=== PATIENT | female | born 1985 | race Caucasian/White ===

== ENCOUNTER 2017-06-21 13:00 | Emergency (ER) | payer SELFPAY ==
[2017-06-21 14:34] LABS: Absolute Lymphocytes (CBC) 2.3 K/uL (0.7-4.9); Absolute Monocytes 0.4 K/uL (0.1-1.3); Absolute Neutrophil 4.6 K/uL (1.8-8.0); Basophils % 0.4 % (0-1.3); Eosinophils % 2.5 % (0-4.4); Hematocrit 43.1 % (36.0-45.0); Lymphocytes % 30.5 % (15.3-44.8); MCH 30.1 pg (27.0-35.0); MCV 90.7 fL (80-100); MPV 8.7 fL (7.6-11.3); RBC Red Blood Cell Count 4.76 M/uL (3.86-4.86)
[2017-06-21] MEDS ORDERED: NA CHLORIDE 0.9% 1,000 ML ONE (14:42)
[2017-06-21] MEDS ORDERED: KETOROLAC 30 MG/ML INJ ONE (14:42)
[2017-06-21] MEDS ORDERED: ONDANSETRON 4 MG/2 ML VIAL ONE (14:42)
[2017-06-21 14:52] LABS: Bicarbonate 25 mEq/L (21-31); Glucose Level 120 mg/dL (65-120); Potassium 3.4 mEq/L (3.6-5.0); Sodium Level 141 mEq/L (135-145)
[2017-06-21 14:56] LABS: ALT/SGPT 14 IU/L (10-60); AST/SGOT 17 IU/L (10-42); Alkaline Phosphatase 36 IU/L (42-121); BUN Blood Urea Nitrogen 14 mg/dL (6-20); Bilirubin Total 0.3 mg/dL (0.3-1.2); Protein, Total 7.4 g/dL (6.0-8.3)
--- NOTE | 2017-06-21 16:37 | RAD REPORT ---
EXAM DESCRIPTION: CT - Stone Protocol - 06/21/2017 4:24 pm CLINICAL HISTORY: Back pain, abdominal pain, right-sided pain, dysuria, history of left salpingectom y COMPARISON: CT study January 2017 TECHNIQUE: Axial 5 mm thick images were obtained without oral or IV contrast. The [id number] span s the entirety of the system including uppermost abdomen and lung bases. All CT scans are performed using dose optimization technique as appropriate and may include automated exposure control or mA/KV adjustment according to patient size. FINDINGS: No hydronephrosis is present and no obstructing ureteral calculi. Patient has developed si gnificant medullary nephrocalcinosis new since January 2000 17. No suspicious renal masses. Isodense masses and pyelonephritis are not excluded on a stone protocol CT scan. Urinary bladder is nearly fu lly contracted. This limits assessment. No bladder calculi seen. No uterine or ovarian process seen. Imaged portions of the liver, spleen and pancreas show no suspicious findings on non-contrast imaging . No gallbladder or biliary tree abnormality identified. No significant adrenal finding. No suspicious bowel findings. Appendix is identified and normal. No mass or bulky lymphadenopathy. A small 18 millimeter umbilical hernia is present. Neck is 6 mm. No congestion, edema or bowel involvement. A few small mesenteric lymph nodes are present. No free air, free fluid or inflammatory stranding. No significant bony abnormality. IMPRESSION: No hydronephrosis, obstructing calculus or acute finding. Patient has developed significant bilateral medullary nephrocalcinosis since the January 2017 study. No appendicitis or acute GI process. A few small mesenteric lymph nodes are present. Isodense masses and pyelonephritis are not excluded on stone protocol technique.
--- NOTE | 2017-06-21 16:45 | EDPHYS ---
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 - Social history:: Smoking status: Patient/guardian denies using tobacco. Vital Signs: 13:37 BP 109 / 69; Pulse 91; Resp 18; Temp 98.4; Pulse Ox 98% on R/A; Weight 55.34 kg; Height ph 5 ft. 2 in. (157.48 cm); Pain 9/10; 14:20 BP 176 / 134; Pulse 95; Resp 17; Pulse Ox 99% on R/A; rb1 14:25 BP 101 / 62; Pulse 88; Resp 19; Pulse Ox 99% on R/A; Pain 7/10; rb1 15:17 BP 98 / 55; Pulse 75; Resp 19; Pulse Ox 99% ; rb1 16:20 BP 100 / 61; Pulse 76; Resp 17; Pulse Ox 100% on R/A; rb1 17:00 BP 102 / 63; Pulse 78; Resp 17; Pulse Ox 100% on R/A; rb1 13:37 Body Mass Index 22.31 (55.34 kg, 157.48 cm) ph MDM: 14:23 Patient medically screened. ps1 06/21 14:22 Order name: CBC with Diff; Complete Time: 14:39 ps1 06/21 14:22 Order name: CMP; Complete Time: 14:58 ps1 06/21 14:22 Order name: CT Stone Protocol; Complete Time: 16:41 ps1 06/21 16:16 Order name: Urine Dipstick-Ancillary; Complete Time: 17:01 EDMS 06/21 16:16 Order name: Urine --Ancillary; Complete Time: 17:01 EDMS Administered Medications: 14:40 Drug: NS 0.9% 1000 ml Route: IV; Rate: 1 bolus; Site: right antecubital; rb1 15:47 Follow up: IV Status: Completed infusion rb1 14:40 Drug: Zofran 4 mg Route: IVP; Site: right antecubital; rb1 15:00 Follow up: Response: No adverse reaction; Nausea is decreased rb1 14:40 Drug: TORadol 30 mg Route: IVP; Site: right antecubital; rb1 15:00 Follow up: Response: No adverse reaction; Pain is decreased rb1 Disposition: 18 16:44 Discharged to Home. Impression: Nausea and vomiting, Diarrhea, unspecified. - Condition is Stable. - Discharge Instructions: Abdominal Pain, Adult, Diarrhea, Kidney Stones. - Prescriptions for ketorolac 10 mg Oral tablet - take 1 tablet by ORAL route every 4-6 hours not to exceed 40 mg in 24hrs; 15 tablet. Zofran 4 mg Oral Tablet - take 1 tablet by ORAL route every 12 hours As needed; 20 tablet. - Medication Reconciliation Form, Thank You Letter, Antibiotic Education, Prescription Opioid Use form. - Follow up: Marbin Fortune MD; Reason: Recheck today's complaints, Continuance of care, Re-evaluation by your physician. Follow up: Emergency Department; When: As needed; Reason: Fever > 102 F, Worsening of condition. - Problem is new. - Symptoms have improved. Addendum: 07/02/2017 05:51 Co-signature as Attending Physician, Zachary Brandt MD available for consultation at p s1 all times. . 05:53 Addendum: 31 y/o F presenting with r flank pain and dysuria. Pain rated as moderate. No p s1 fever. Hx of ovarian cyst. ROS. No HSU, CP, JAMES, NV, Chills. PHY. NCAT, RRR, no MRG, CTAB. R flank palpable pain. No ZAID. Labs and CT reveiewed. No infected stone. Home with toradol and zofran. Follow up with Dr. Fortune. . Signatures: Dispatcher [employer] [facility] Chelita Malagon RN RN Rose Mccloud, RN Zachary Morales MD MD ps1
--- NOTE | 2017-06-21 16:45 | ER ---
Nurse's Notes [facility] Name: Kristin Atkinson Age: 31 yrs Sex: Female : 1985 Arrival Date: 06/21/2017 Time: 13:00 Bed 13 Private MD: Diagnosis: Nausea and vomiting;Diarrhea, unspecified Presentation: 06/21 13:31 Presenting complaint: Patient states: " I started having pain in my back on the right ph side since yesterday and it porras when I pee. I started having diarrhea and vomiting today and now the pain has moved to my stomach." Pt reports pain in RLQ, denies fever, reports hx of ovarian cyst rupture and states that symptoms feel similar. Transition of care: patient was not received from another setting of care. Onset of symptoms was June 21, 2017. Initial Sepsis Screen: Does the patient meet any 2 criteria? No. Patient's initial sepsis screen is negative. Does the patient have a suspected source of infection? No. Patient's initial sepsis screen is negative. Care prior to arrival: None. 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 - Social history:: Smoking status: Patient/guardian denies using tobacco. Screenin:53 Abuse screen: Denies threats or abuse. Nutritional screening: No deficits noted. rb1 Tuberculosis screening: No symptoms or risk factors identified. Fall Risk None identified. Assessment: 13:53 General: Appears uncomfortable, Behavior is calm, cooperative, Denies fever. Pain: rb1 Complains of pain in right lower quadrant Pain currently is 8 out of 10 on a pain scale. Pain began 1-2 days ago. Neuro: Level of Consciousness is awake, alert, obeys commands, Oriented to person, place, time, situation. Cardiovascular: Capillary refill < 3 seconds is brisk in bilateral fingers. Respiratory: Airway is patent Respiratory effort is even, unlabored, Respiratory pattern is regular, symmetrical. GI: Bowel sounds present X 4 quads. Abd is soft Abdomen is tender to palpation in right lower quadrant Reports nausea, vomiting. : Reports burning with urination. Derm: Skin is pink, warm \\T\\ dry. 14:44 Reassessment: Patient appears in no apparent distress at this time. No changes from rb1 previously documented assessment. 15:33 Reassessment: Patient appears in no apparent distress at this time. Patient and/or rb1 family updated on plan of care and expected duration. Pain level reassessed. Patient is alert, oriented x 3, equal unlabored respirations, skin warm/dry/pink. Pt. requested some medicine for pain; provider notified. No order received at this time. 16:30 Reassessment: Patient appears in no apparent distress at this time. No changes from rb1 previously documented assessment. Vital Signs: 13:37 BP 109 / 69; Pulse 91; Resp 18; Temp 98.4; Pulse Ox 98% on R/A; Weight 55.34 kg; Height ph 5 ft. 2 in. (157.48 cm); Pain 9/10; 14:20 BP 176 / 134; Pulse 95; Resp 17; Pulse Ox 99% on R/A; rb1 14:25 BP 101 / 62; Pulse 88; Resp 19; Pulse Ox 99% on R/A; Pain 7/10; rb1 15:17 BP 98 / 55; Pulse 75; Resp 19; Pulse Ox 99% ; rb1 16:20 BP 100 / 61; Pulse 76; Resp 17; Pulse Ox 100% on R/A; rb1 17:00 BP 102 / 63; Pulse 78; Resp 17; Pulse Ox 100% on R/A; rb1 13:37 Body Mass Index 22.31 (55.34 kg, 157.48 cm) ph ED Course: 13:00 Patient arrived in ED. as 13:23 Patient's name was called from ER lobby. No response. ph 13:34 Triage completed. ph 13:53 Patient has correct armband on for positive identification. Bed in low position. Call rb1 light in reach. Side rails up X2. Pulse ox on. NIBP on. 13:53 Arm band placed on right wrist. rb1 14:01 Zachary Brandt MD is Attending Physician. ps1 14:24 Rose Mccloud, RN is Primary Nurse. rb1 14:26 Radiology exam delayed due to test not completed at this time. sj 16:10 Radiology exam delayed due to test not completed at this time. vm2 16:[address] via wheelchair. vm2 16:23 CT completed. Patient tolerated procedure well. Patient moved back from CT. vm2 16:23 CT Stone Protocol In Process Unspecified. EDMS 16:42 Marbin Fortune MD is Referral Physician. ps1 17:00 No provider procedures requiring assistance completed. IV discontinued, intact, rb1 bleeding controlled, No redness/swelling at site. Pressure dressing applied. Administered Medications: 14:40 Drug: NS 0.9% 1000 ml Route: IV; Rate: 1 bolus; Site: right antecubital; rb1 15:47 Follow up: IV Status: Completed infusion rb1 14:40 Drug: Zofran 4 mg Route: IVP; Site: right antecubital; rb1 15:00 Follow up: Response: No adverse reaction; Nausea is decreased rb1 14:40 Drug: TORadol 30 mg Route: IVP; Site: right antecubital; rb1 15:00 Follow up: Response: No adverse reaction; Pain is decreased rb1 Outcome: 16:44 Discharge ordered by MD. ps1 17:00 Discharged to home ambulatory, with family. rb1 17:00 Condition: stable 17:00 Discharge instructions given to patient, Instructed on discharge instructions, follow up and referral plans. medication usage, Demonstrated understanding of instructions, follow-up care, medications, Prescriptions given X 2. 17:00 Patient left the ED. rb1 Signatures: Dispatcher [employer] Giana Seth Roxie Morales Patricia, RN RN Rose Mccloud RN RN [facility] Katie Harley [facility] Zachary Brandt MD MD ps1 Corrections: (The following items were deleted from the chart) 17:05 17:05 Patient left the ED. rb1 rb1
[2017-06-21 16:54] LABS: Urine Blood NEGATIVE (NEG); Urine Glucose NEGATIVE (NEG); Urine Protein NEGATIVE (NEG)
[2017-06-21 17:08] VITALS: TEMP 98.4
[2017-06-21 17:13] VITALS: O2SAT 100
[2017-06-21 17:14] VITALS: BP 102/63
== END 2017-06-21 17:05 | disposition home or self-care (01) ==
LOC: ER 13:00
DX: R11.2 Nausea with vomiting, unspecified (principal); R19.7 Diarrhea, unspecified; J45.909 Unspecified asthma, uncomplicated; Z91.040 Latex allergy status; Z91.041 Radiographic dye allergy status; Z91.048 Other nonmedicinal substance allergy status
CPT/HCPCS: 36415; 74176; 76377; 80053; 81003; 81025; 85025; 96361; 96374; 96375; 99284; J2405; J7030

== ENCOUNTER 2017-07-25 20:21 | Emergency (ER) | payer SELFPAY ==
[2017-07-25] MEDS ORDERED: METHYLPREDNISOLONE 125 MG INJ ONE (20:52)
[2017-07-25] MEDS ORDERED: FAMOTIDINE 20 MG TAB ONE (20:52)
[2017-07-25] MEDS ORDERED: DIPHENHYDRAMINE 25 MG TAB/CAP ONE (20:52)
--- NOTE | 2017-07-25 21:53 | ER ---
Nurse's Notes [facility] Name: Kristin Atkinson Age: 31 yrs Sex: Female : 1985 Arrival Date: 07/25/2017 Time: 20:24 Bed 24 Private MD: Diagnosis: Urticaria Presentation: 07/25 20:40 Presenting complaint: Patient states: she was started on Amoxicillin several weeks ago bb started having a rash under her left breast and thought it was a ring worm so started putting OTC fungal cream on it but rash has progressed was seen at [facility] and put on hydroxyzine and told to take Benadryl but rash is spreading all over her body and is itchy. Transition of care: patient was not received from another setting of care. Onset: The symptoms/episode began/occurred 2 week(s) ago. Anaphylaxis evaluation, no signs or symptoms of anaphylaxis were noted. Onset of symptoms is unknown. Risk Assessment: Do you want to hurt yourself or someone else? Patient reports no desire to harm self or others. Initial Sepsis Screen: Does the patient meet any 2 criteria? No. Patient's initial sepsis screen is negative. Does the patient have a suspected source of infection? No. Patient's initial sepsis screen is negative. Care prior to arrival: pt has been taking Benadry every 4 hours last dose was at approx 1600. 20:40 Method Of Arrival: Ambulatory bb 20:40 Acuity: BOOM 3 bb Triage Assessment: 21:08 General: Appears in no apparent distress. slender, well groomed, well developed, well rk2 nourished, Behavior is. 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 - Social history:: Smoking status: Patient/guardian denies using tobacco, Patient uses alcohol, but reports only rare drinking. Patient/guardian denies using street drugs. Screenin:08 Abuse screen: Denies threats or abuse. Nutritional screening: No deficits noted. rk2 Tuberculosis screening: No symptoms or risk factors identified. Fall Risk None identified. Assessment: 21:08 Pain: Denies pain. Neuro: Level of Consciousness is alert, obeys commands, Oriented to rk2 person, place, time, situation. Respiratory: Airway is patent Respiratory effort is even, unlabored, Breath sounds are clear bilaterally. Derm: Skin is pink, warm \T\ dry. Rash noted that is itchy, papular, red. Vital Signs: 20:43 BP 116 / 98; Pulse 99; Resp 18 S; Temp 98.5(O); Pulse Ox 98% on R/A; Weight 55.34 kg bb (R); Height 5 ft. 3 in. (160.02 cm) (R); Pain 0/10; 22:12 BP 103 / 56; Pulse 83; Resp 17; Pulse Ox 99% on R/A; rk2 20:43 Body Mass Index 21.61 (55.34 kg, 160.02 cm) ED Course: 20:24 Patient arrived in ED. am2 20:30 Chandra Cooley, ALEX is PHCP. pm1 20:30 Raghu Almaraz MD is Attending Physician. pm1 20:37 Aidee Mejia, RN is Primary Nurse. rk2 20:42 Triage completed. 20:43 Arm band placed on Patient placed in an exam room, on a stretcher, on pulse oximetry. Family accompanied patient. 21:08 Patient has correct armband on for positive identification. Bed in low position. Call rk2 light in reach. 22:13 No provider procedures requiring assistance completed. Patient did not have IV access rk2 during this emergency room visit. Administered Medications: 21:03 Drug: SOLU-Medrol 125 mg Route: IM; Site: left vastus lateralis; rk2 22:15 Follow up: Response: No adverse reaction rk2 21:03 Drug: Benadryl 25 mg Route: PO; rk2 22:14 Follow up: Response: No adverse reaction rk2 21:03 Drug: Pepcid 20 mg Route: PO; rk2 22:14 Follow up: Response: No adverse reaction rk2 Outcome: 21:52 Discharge ordered by . pm1 22:13 Discharged to home ambulatory. rk2 22:13 Condition: good 22:13 Discharge instructions given to patient, Prescriptions given X 3. 22:22 Patient left the ED. rk2 Signatures: Kayla Hawk, RN Chandra Barrow NP [employer] pm1 Karlene Lowe am2 Aidee Mejia RN RN rk2
--- NOTE | 2017-07-25 21:53 | EDPHYS ---
Physician Documentation [facility] Name: Kristin Atkinson Age: 31 yrs Sex: Female : 1985 Arrival Date: 07/25/2017 Time: 20:24 Bed 24 Private MD: ED Physician Raghu Almaraz HPI: 07/25 22:00 This 31 yrs old Female presents to ER via Ambulatory with complaints of pm1 Allergic Reaction. 22:00 The patient presents with rash, that is diffuse. Onset: The symptoms/episode pm1 began/occurred 2 day(s) ago. Associated signs and symptoms: Pertinent negatives: chest pain, dysphagia, fever, shortness of breath, swelling. Possible causes: tramadol or amoxicillin. At home the patient or guardian has treated the symptoms with nothing. Severity of symptoms: in the emergency department the symptoms are worse. The patient has not experienced similar symptoms in the past. another ER for kidney stones about 10 days ago and discharged to home with amoxicillin and tramadol. Completed amoxicillin but still taking some tramadol with possible rash to either one. 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 - Social history:: Smoking status: Patient/guardian denies using tobacco, Patient uses alcohol, but reports only rare drinking. Patient/guardian denies using street drugs. ROS: 22:00 Constitutional: Negative for fever, chills, and weight loss, Eyes: Negative for injury, pm1 pain, redness, and discharge, ENT: Negative for injury, pain, and discharge, Neck: Negative for injury, pain, and swelling, Cardiovascular: Negative for chest pain, palpitations, and edema, Respiratory: Negative for shortness of breath, cough, wheezing, and pleuritic chest pain, Abdomen/GI: Negative for abdominal pain, nausea, vomiting, diarrhea, and constipation, Back: Negative for injury and pain, : Negative for injury, bleeding, discharge, and swelling, MS/Extremity: Negative for injury and deformity. 22:00 Skin: Positive for rash, diffusely. Exam: 22:00 Constitutional: This is a well developed, well nourished patient who is awake, alert, pm1 and in no acute distress. Head/Face: Normocephalic, atraumatic. Eyes: Pupils equal round and reactive to light, extra-ocular motions intact. Lids and lashes normal. Conjunctiva and sclera are non-icteric and not injected. Cornea within normal limits. Periorbital areas with no swelling, redness, or edema. ENT: Nares patent. No nasal discharge, no septal abnormalities noted. Tympanic membranes are normal and external auditory canals are clear. Oropharynx with no redness, swelling, or masses, exudates, or evidence of obstruction, uvula midline. Mucous membranes moist. Neck: Trachea midline, no thyromegaly or masses palpated, and no cervical lymphadenopathy. Supple, full range of motion without nuchal rigidity, or vertebral point tenderness. No Meningismus. Chest/axilla: Normal chest wall appearance and motion. Nontender with no deformity. No lesions are appreciated. Cardiovascular: Regular rate and rhythm with a normal S1 and S2. No gallops, murmurs, or rubs. Normal PMI, no JVD. No pulse deficits. Respiratory: Lungs have equal breath sounds bilaterally, clear to auscultation and percussion. No rales, rhonchi or wheezes noted. No increased work of breathing, no retractions or nasal flaring. Abdomen/GI: Soft, non-tender, with normal bowel sounds. No distension or tympany. No guarding or rebound. No evidence of tenderness throughout. Back: No spinal tenderness. No costovertebral tenderness. Full range of motion. 22:00 Skin: Appearance: normal except for affected area, consistent with urticaria. Vital Signs: 20:43 BP 116 / 98; Pulse 99; Resp 18 S; Temp 98.5(O); Pulse Ox 98% on R/A; Weight 55.34 kg bb (R); Height 5 ft. 3 in. (160.02 cm) (R); Pain 0/10; 22:12 BP 103 / 56; Pulse 83; Resp 17; Pulse Ox 99% on R/A; rk2 20:43 Body Mass Index 21.61 (55.34 kg, 160.02 cm) jason MDM: 20:42 Patient medically screened. pm1 21:51 Data reviewed: vital signs. Data interpreted: Pulse oximetry: on room air is 98 %. pm1 Interpretation: normal. Counseling: I had a detailed discussion with the patient and/or guardian regarding: the historical points, exam findings, and any diagnostic results supporting the discharge/admit diagnosis, the need for outpatient follow up, to return to the emergency department if symptoms worsen or persist or if there are any questions or concerns that arise at home. Administered Medications: 21:03 Drug: SOLU-Medrol 125 mg Route: IM; Site: left vastus lateralis; rk2 22:15 Follow up: Response: No adverse reaction rk2 21:03 Drug: Benadryl 25 mg Route: PO; rk2 22:14 Follow up: Response: No adverse reaction rk2 21:03 Drug: Pepcid 20 mg Route: PO; rk2 22:14 Follow up: Response: No adverse reaction rk2 Disposition: 07/26 01:11 Co-signature as Attending Physician, Raghu Almaraz MD I agree with the assessment and tw4 plan of care. Disposition: 07/25/17 21:52 Discharged to Home. Impression: Urticaria. - Condition is Stable. - Discharge Instructions: Hives. - Prescriptions for Benadryl 25 mg Oral Capsule - take 1 capsule by ORAL route every 6 hours As needed; 30 tablet. Pepcid 20 mg Oral Tablet - take 1 tablet by ORAL route every 12 hours for 5 days; 10 tablet. Prednisone 20 mg Oral Tablet - take 3 tablet by ORAL route once daily for 5 days; 15 tablet. - Medication Reconciliation Form, Thank You Letter, Antibiotic Education, Prescription Opioid Use form. - Follow up: Emergency Department; When: As needed; Reason: Worsening of condition. Follow up: Private Physician; When: 2 - 3 days; Reason: Recheck today's complaints, Continuance of care, Re-evaluation by your physician. - Problem is new. - Symptoms have improved. Signatures: Kayla Hawk RN RN bb Chandra Cooley, BASEBALL PLAYER BASEBALL PLAYER pm1 Raghu Almaraz MD MD tw4 Aidee Mejia RN RN rk2 Corrections: (The following items were deleted from the chart) 05/21 22:22 21:52 07/25/2017 21:52 Discharged to Home. Impression: Urticaria. Condition is Stable. rk2 Forms are Medication Reconciliation Form, Thank You Letter, Antibiotic Education, Prescription Opioid Use. Follow up: Emergency Department; When: As needed; Reason: Worsening of condition. Follow up: Private Physician; When: 2 - 3 days; Reason: Recheck today's complaints, Continuance of care, Re-evaluation by your physician. Problem is new. Symptoms have improved. pm1
[2017-07-25 22:29] VITALS: TEMP 98.5
[2017-07-25 22:30] VITALS: BP 103/56; O2SAT 99
== END 2017-07-25 22:22 | disposition home or self-care (01) ==
LOC: ER 20:21
DX: L50.9 Urticaria, unspecified (principal); J45.909 Unspecified asthma, uncomplicated; Z91.041 Radiographic dye allergy status; Z91.040 Latex allergy status; Z91.048 Other nonmedicinal substance allergy status
CPT/HCPCS: 96372; 99283; J2930

== ENCOUNTER 2017-10-27 08:26 | Emergency (ER) | payer SELFPAY ==
--- NOTE | 2017-10-27 09:23 | ER ---
Nurse's Notes [facility] Name: Kristin Atkinson Age: 31 yrs Sex: Female : 1985 Arrival Date: 10/27/2017 Time: 08:29 Bed 19 Private MD: None, None Diagnosis: viral illness;Acute maxillary sinusitis Presentation: 10/27 08:52 Presenting complaint: Patient states: has sore throat since yesterday morning, fever iw since last night up to 102.6, also has sinus congestion, chest tightness, and this morning she had pain with urination and only urinating a small amount. Transition of care: patient was not received from another setting of care. Onset of symptoms was October 27, 2017. Risk Assessment: Do you want to hurt yourself or someone else? Patient reports no desire to harm self or others. Initial Sepsis Screen: Does the patient meet any 2 criteria? No. Patient's initial sepsis screen is negative. Does the patient have a suspected source of infection? No. Patient's initial sepsis screen is negative. Care prior to arrival: None. 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 - Social history:: Smoking status: Patient uses tobacco products, smokes one-half pack cigarettes per day. - Ebola Screening: : Patient denies travel to an Ebola-affected area in the 21 days before illness onset. - Family history:: not pertinent. - Hospitalizations: : No recent hospitalization is reported. Screenin:49 Abuse screen: Denies threats or abuse. Nutritional screening: No deficits noted. tw2 Tuberculosis screening: No symptoms or risk factors identified. Fall Risk None identified. Assessment: 09:11 General: Appears in no apparent distress. uncomfortable, Behavior is calm, cooperative. em General: Reports fever for 12-24 hours. Pain: Complains of pain in suprapubic area and throat. Neuro: Level of Consciousness is awake, alert, obeys commands, Oriented to person, place, time, situation, Reports headache. Cardiovascular: Capillary refill < 3 seconds. Respiratory: Airway is patent Respiratory effort is even, unlabored, Breath sounds are clear bilaterally. Breath sounds are coarse. GI: Abdomen is flat, Patient currently denies abdominal pain, nausea, vomiting. : Urine is clear. EENT: Throat is clear is pink. Derm: Skin is intact, Skin is pink, warm \T\ dry. Musculoskeletal: Capillary refill < 3 seconds, Range of motion: intact in all extremities. Vital Signs: 08:52 BP 111 / 79; Pulse 92; Resp 16 S; Temp 98.0(O); Pulse Ox 98% on R/A; Weight 55.34 kg; iw Height 5 ft. 2 in. (157.48 cm); Pain 9/10; 08:52 Body Mass Index 22.31 (55.34 kg, 157.48 cm) iw ED Course: 08:29 Patient arrived in ED. mr 08:29 None, None is Private Physician. mr 08:50 Arm band placed on. tw2 08:50 Bed in low position. Call light in reach. Pulse ox on. NIBP on. tw2 08:53 [facility]ita Mcgarry [facility]. kav 08:53 Ricky Noriega MD is Attending Physician. kav 08:54 Triage completed. iw 08:55 Jerome Elam LVN is Primary Nurse. em 09:10 Urine collected: clean catch specimen, clear. em 09:32 No provider procedures requiring assistance completed. Patient did not have IV access em during this emergency room visit. Administered Medications: No medications were administered Outcome: 09:23 Discharge ordered by . kav 09:32 Discharged to home ambulatory. em 09:32 Condition: good 09:32 Discharge instructions given to patient, Instructed on discharge instructions, follow up and referral plans. medication usage, Demonstrated understanding of instructions, follow-up care, medications, Prescriptions given X 2. 09:33 Patient left the ED. em Signatures: Morenita Mcgarry FNP STRATEGIC ACCOUNTS MANAGERSonia Christopher mr Jerome Elam LVN LVN em Shawnee Greer RN RN iw Cierra Velasco, RN RN tw2
--- NOTE | 2017-10-27 09:23 | EDPHYS ---
Physician Documentation [facility] Name: Kristin Atkinson Age: 31 yrs Sex: Female : 1985 Arrival Date: 10/27/2017 Time: 08:29 Bed 19 Private MD: None, None ED Physician Ricky Noriega HPI: 10/27 08:53 This 31 yrs old Female presents to ER via Unassigned with complaints of kav Fever, Sore Throat, Urinary Problem. 09:04 The patient reports fever, that was measured at 102.4 degrees Fahrenheit, with an kav emergency department temperature of 98.0 degrees Fahrenheit. Onset: The symptoms/episode began/occurred acutely, last year. Modifying factors: "...recently started smoking". Associated signs and symptoms: Pertinent positives: sinus congestion, sore throat, Pertinent negatives: chills, cough, diarrhea, headache. Severity of symptoms: At their worst the symptoms were moderate just prior to arrival. The patient has experienced similar episodes in the past, several times. The patient has not recently seen a physician. Also, c/o burning with urination. 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 - Social history:: Smoking status: Patient uses tobacco products, smokes one-half pack cigarettes per day. - Ebola Screening: : Patient denies travel to an Ebola-affected area in the 21 days before illness onset. - Family history:: not pertinent. - Hospitalizations: : No recent hospitalization is reported. ROS: 09:05 Constitutional: Negative for fever, chills, and weight loss, Eyes: Negative for injury, kav pain, redness, and discharge, Neck: Negative for injury, pain, and swelling, Cardiovascular: Negative for chest pain, palpitations, and edema, Respiratory: Negative for shortness of breath, cough, wheezing, and pleuritic chest pain, Abdomen/GI: Negative for abdominal pain, nausea, vomiting, diarrhea, and constipation, Back: Negative for injury and pain, : Negative for injury, bleeding, discharge, and swelling, MS/Extremity: Negative for injury and deformity, Skin: Negative for injury, rash, and discoloration, Neuro: Negative for headache, weakness, numbness, tingling, and seizure, Psych: Negative for depression, anxiety, suicide ideation, homicidal ideation, and hallucinations, Allergy/Immunology: Negative for hives, rash, and allergies, Endocrine: Negative for neck swelling, polydipsia, polyuria, polyphagia, and marked weight changes, Hematologic/Lymphatic: Negative for swollen nodes, abnormal bleeding, and unusual bruising. 09:05 ENT: Positive for difficulty swallowing, sinus congestion, sinus pain, sore throat, Negative for ear pain. Exam: 09:05 Constitutional: This is a well developed, well nourished patient who is awake, alert, kav and in no acute distress. Head/Face: Normocephalic, atraumatic. Eyes: Pupils equal round and reactive to light, extra-ocular motions intact. Lids and lashes normal. Conjunctiva and sclera are non-icteric and not injected. Cornea within normal limits. Periorbital areas with no swelling, redness, or edema. Neck: Trachea midline, no thyromegaly or masses palpated, and no cervical lymphadenopathy. Supple, full range of motion without nuchal rigidity, or vertebral point tenderness. No Meningismus. Chest/axilla: Normal chest wall appearance and motion. Nontender with no deformity. No lesions are appreciated. Cardiovascular: Regular rate and rhythm with a normal S1 and S2. No gallops, murmurs, or rubs. Normal PMI, no JVD. No pulse deficits. Respiratory: Lungs have equal breath sounds bilaterally, clear to auscultation and percussion. No rales, rhonchi or wheezes noted. No increased work of breathing, no retractions or nasal flaring. Abdomen/GI: Soft, non-tender, with normal bowel sounds. No distension or tympany. No guarding or rebound. No evidence of tenderness throughout. Back: No spinal tenderness. No costovertebral tenderness. Full range of motion. Skin: Warm, dry with normal turgor. Normal color with no rashes, no lesions, and no evidence of cellulitis. MS/ Extremity: Pulses equal, no cyanosis. Neurovascular intact. Full, normal range of motion. Neuro: Awake and alert, GCS 15, oriented to person, place, time, and situation. Cranial nerves II-XII grossly intact. Motor strength 5/5 in all extremities. Sensory grossly intact. Cerebellar exam normal. Normal gait. Psych: Awake, alert, with orientation to person, place and time. Behavior, mood, and affect are within normal limits. 09:05 ENT: External ear(s): are unremarkable, no acute changes, Ear canal(s): are normal, no acute changes, TM's: are normal, no acute changes, Nose: Turbinates: are swollen bilaterally, Mouth: is normal, no acute changes, Posterior pharynx: erythema, that is mild. Vital Signs: 08:52 BP 111 / 79; Pulse 92; Resp 16 S; Temp 98.0(O); Pulse Ox 98% on R/A; Weight 55.34 kg; iw Height 5 ft. 2 in. (157.48 cm); Pain 9/10; 08:52 Body Mass Index 22.31 (55.34 kg, 157.48 cm) iw MDM: 08:54 Patient medically screened. hi 09:05 Data reviewed: vital signs, nurses notes. nilsa 10/27 09:16 Order name: Urine Dipstick--Ancillary (enter results) mb4 10/27 09:16 Order name: Urine --Ancillary (enter results) mb4 Administered Medications: No medications were administered Disposition: 10/27/17 09:23 Discharged to Home. Impression: viral illness, Acute maxillary sinusitis. - Condition is Stable. - Discharge Instructions: Sinusitis, Adult, Viral Respiratory Infection, [id number]. - Prescriptions for Augmentin 875- 125 mg Oral Tablet - take 1 tablet by ORAL route every 12 hours for 10 days; 20 tablet. Medrol (Jesus Manuel) 4 mg Oral Tablets, Dose Pack - take 1 tablet by ORAL route as directed - follow package instructions; 1 packet. - Medication Reconciliation Form, Thank You Letter, Antibiotic Education, Prescription Opioid Use form. - Follow up: Private Physician; When: 1 - 2 days; Reason: Recheck today's complaints, Continuance of care, Re-evaluation by your physician. - Problem is new. - Symptoms are unchanged. Addendum: 10/29/2017 08:02 Co-signature as Attending Physician, Ricky Noriega MD I agree with the assessment and w a plan of care. Signatures: Dispatcher [employer] Morenita Perez, TRANSFORMATION ANALYST TRANSFORMATION ANALYST Jerome Cooper, TAXATION ACCOUNTANT TAXATION ACCOUNTANT em Shawnee Greer, RN RN iw Cierra Velasco RN RN tw2 Ricky Noriega MD MD hi Corrections: (The following items were deleted from the chart) 10/27 09:33 09:23 10/27/2017 09:23 Discharged to Home. Impression: viral illness; Acute maxillary em sinusitis. Condition is Stable. Forms are Medication Reconciliation Form, Thank You Letter, Antibiotic Education, Prescription Opioid Use. Follow up: Private Physician; When: 1 - 2 days; Reason: Recheck today's complaints, Continuance of care, Re-evaluation by your physician. Problem is new. Symptoms are unchanged. kav
[2017-10-27 09:38] VITALS: BP 111/79; TEMP 98; O2SAT 98
[2017-10-27 09:49] LABS: Urine Blood TRACE (NEG); Urine Glucose NEGATIVE (NEG); Urine Protein NEGATIVE (NEG)
== END 2017-10-27 09:33 | disposition home or self-care (01) ==
LOC: ER 08:26
DX: B34.9 Viral infection, unspecified (principal); J01.00 Acute maxillary sinusitis, unspecified; F17.210 Nicotine dependence, cigarettes, uncomplicated; J45.909 Unspecified asthma, uncomplicated; Z91.040 Latex allergy status; Z91.041 Radiographic dye allergy status; Z91.048 Other nonmedicinal substance allergy status
CPT/HCPCS: 81003; 81025; 99283

== ENCOUNTER 2018-09-20 12:25 | Emergency (ER) | payer SELFPAY ==
--- NOTE | 2018-09-20 13:35 | ER ---
Nurse's Notes [facility] Name: Kristin Atkinson Age: 32 yrs Sex: Female : 1985 Arrival Date: 09/20/2018 Time: 12:25 Bed 11 Private MD: Diagnosis: Acute serous otitis media, left ear Presentation: 09/20 12:38 Presenting complaint: Patient states: 3 weeks ago my R ear drum busted, L ear is busted hj few days after and now is still hurting; i finished antibiotic drops already;. Transition of care: patient was not received from another setting of care. Onset of symptoms was September 20, 2018. Risk Assessment: Do you want to hurt yourself or someone else? Patient reports no desire to harm self or others. Initial Sepsis Screen: Does the patient meet any 2 criteria? No. Patient's initial sepsis screen is negative. Does the patient have a suspected source of infection? No. Patient's initial sepsis screen is negative. Care prior to arrival: None. 12:38 Method Of Arrival: Ambulatory 12:38 Acuity: BOOM 4 Triage Assessment: 13:51 General: Appears in no apparent distress. uncomfortable, Behavior is calm, cooperative, hj appropriate for age. Pain: Complains of pain in left ear. 13:52 EENT: Reports pain in left ear. 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 - Social history:: Smoking status: Patient uses tobacco products, Patient/guardian denies using alcohol. - Ebola Screening: : Patient negative for fever greater than or equal to 101.5 degrees Fahrenheit, and additional compatible Ebola Virus Disease symptoms Patient denies exposure to infectious person Patient denies travel to an Ebola-affected area in the 21 days before illness onset. Screenin:51 Abuse screen: Denies threats or abuse. Denies injuries from another. Nutritional hj screening: No deficits noted. Tuberculosis screening: No symptoms or risk factors identified. Fall Risk None identified. Vital Signs: 12:40 BP 119 / 77; Pulse 68; Resp 18; Temp 98.0(TE); Pulse Ox 99% on R/A; Weight 49.44 kg; hj Height 5 ft. 3 in. (160.02 cm); Pain 8/10; 12:40 Body Mass Index 19.31 (49.44 kg, 160.02 cm) hj ED Course: 12:25 Patient arrived in ED. as 12:40 Triage completed. hj 12:41 Arm band placed on left wrist. hj 13:04 Mike Toth PA is PHCP. jr8 13:04 Apollo Garcia MD is Attending Physician. jr8 13:34 Claudia Lucas MD is Referral Physician. jr8 13:51 No provider procedures requiring assistance completed. Patient did not have IV access hj during this emergency room visit. 13:52 Patient has correct armband on for positive identification. Bed in low position. Call hj light in reach. Side rails up X 1. Administered Medications: No medications were administered Outcome: 13:35 Discharge ordered by MD. jr8 13:51 Discharged to home ambulatory, with family. hj 13:51 Condition: stable 13:51 Discharge instructions given to patient, family, Instructed on discharge instructions, follow up and referral plans. medication usage, Demonstrated understanding of instructions, follow-up care, medications, Prescriptions given X 1. 13:52 Patient left the ED. hj Signatures: Roxie Morales Josh, PA PA jr8 Ki Villalobos, RN RN hj Corrections: (The following items were deleted from the chart) 12:42 12:40 49.44 kg; Height 5 ft. 3 in.; BMI: 19.3; Pain 8/10; hj hj
--- NOTE | 2018-09-20 13:36 | EDPHYS ---
Physician Documentation [facility] Name: Kristin Atkinson Age: 32 yrs Sex: Female : 1985 Arrival Date: 09/20/2018 Time: 12:25 Bed 11 Private MD: ED Physician Apollo Garcia HPI: 09/20 13:12 This 32 yrs old Female presents to ER via Ambulatory with complaints of Ear jr8 Pain, Drainage From Ear. 13:12 The patient presents with pain, that is acute. The complaints affect the left ear. jr8 Onset: The symptoms/episode began/occurred 2 day(s) ago. Modifying factors: The symptoms are alleviated by nothing, the symptoms are aggravated by nothing, touching. Associated signs and symptoms: Pertinent negatives: fever, nausea, sinus trouble, sore throat, vomiting. Severity of symptoms: At their worst the symptoms were mild in the emergency department the symptoms are unchanged. The patient has experienced a previous episode, approximately 3 weeks ago, was told at that time she had bilateral TM ruptures. 3 weeks ago seen at [facility] for bilateral TM rupture, now with left ear pain and drainage that started 2 days ago. . 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 - Social history:: Smoking status: Patient uses tobacco products, Patient/guardian denies using alcohol. - Ebola Screening: : Patient negative for fever greater than or equal to 101.5 degrees Fahrenheit, and additional compatible Ebola Virus Disease symptoms Patient denies exposure to infectious person Patient denies travel to an Ebola-affected area in the 21 days before illness onset. ROS: 13:12 Constitutional: Negative for fever, chills, and weight loss, Eyes: Negative for injury, jr8 pain, redness, and discharge, Neck: Negative for injury, pain, and swelling, Cardiovascular: Negative for chest pain, palpitations, and edema, Respiratory: Negative for shortness of breath, cough, wheezing, and pleuritic chest pain, Abdomen/GI: Negative for abdominal pain, nausea, vomiting, diarrhea, and constipation, Back: Negative for injury and pain, MS/Extremity: Negative for injury and deformity, Skin: Negative for injury, rash, and discoloration, Neuro: Negative for headache, weakness, numbness, tingling, and seizure. 13:12 ENT: Positive for drainage from ear(s), ear pain, nasal discharge, Negative for hearing loss, Teeth pain dental pain. Exam: 13:12 Constitutional: This is a well developed, well nourished patient who is awake, alert, jr8 and in no acute distress. Head/Face: Normocephalic, atraumatic. Eyes: Pupils equal round and reactive to light, extra-ocular motions intact. Lids and lashes normal. Conjunctiva and sclera are non-icteric and not injected. Cornea within normal limits. Periorbital areas with no swelling, redness, or edema. Neck: Trachea midline, no thyromegaly or masses palpated, and no cervical lymphadenopathy. Supple, full range of motion without nuchal rigidity, or vertebral point tenderness. No Meningismus. Cardiovascular: Regular rate and rhythm with a normal S1 and S2. No gallops, murmurs, or rubs. Normal PMI, no JVD. No pulse deficits. Respiratory: Lungs have equal breath sounds bilaterally, clear to auscultation and percussion. No rales, rhonchi or wheezes noted. No increased work of breathing, no retractions or nasal flaring. Abdomen/GI: Soft, non-tender, with normal bowel sounds. No distension or tympany. No guarding or rebound. No evidence of tenderness throughout. Skin: Warm, dry with normal turgor. Normal color with no rashes, no lesions, and no evidence of cellulitis. MS/ Extremity: Pulses equal, no cyanosis. Neurovascular intact. Full, normal range of motion. Neuro: Awake and alert, GCS 15, oriented to person, place, time, and situation. Cranial nerves II-XII grossly intact. Motor strength 5/5 in all extremities. Sensory grossly intact. Cerebellar exam normal. Normal gait. 13:12 ENT: External ear(s): are unremarkable, Ear canal(s): are normal, TM's: erythema, that is mild, on the left, fluid levels, on the left, scarring to left, Examination of the other ear shows no obvious abnormality, Nose: is normal, Mouth: is normal, Posterior pharynx: is normal, airway is patent, no erythema, no exudate. Vital Signs: 12:40 BP 119 / 77; Pulse 68; Resp 18; Temp 98.0(TE); Pulse Ox 99% on R/A; Weight 49.44 kg; hj Height 5 ft. 3 in. (160.02 cm); Pain 8/10; 12:40 Body Mass Index 19.31 (49.44 kg, 160.02 cm) hj MDM: 13:04 Patient medically screened. jr8 13:27 Differential diagnosis: otitis media, otitis externa, ruptured TM, foreign body, acute jr8 otalgia, cerumen impaction. Data reviewed: vital signs, nurses notes, and as a result, I will discharge patient, administer antibiotics. Data interpreted: Pulse oximetry: on room air is 99 %. Interpretation: normal. Counseling: I had a detailed discussion with the patient and/or guardian regarding: the historical points, exam findings, and any diagnostic results supporting the discharge/admit diagnosis, the need for outpatient follow up, an ENT specialist, to return to the emergency department if symptoms worsen or persist or if there are any questions or concerns that arise at home. 13:31 ED course: Discussed exam findings and need to fu with ENT due to continued ear jr8 problems. Serous otitis vs very early acute otitis media. Discussed taking pseudoephedrine OTC daily x 5 days to relieve eustachian tube dysfunction and ibuprofen 800 mg BID for pain. Will prescribe amoxicillin to take if pain does not resolve or worsens.. Administered Medications: No medications were administered Disposition: 15:59 Co-signature as Attending Physician, Apollo Garcia MD. rn Disposition: 09/20/18 13:35 Discharged to Home. Impression: Acute serous otitis media, left ear. - Condition is Stable. - Discharge Instructions: Serous Otitis Media. - Prescriptions for Amoxicillin 875 mg Oral Tablet - take 1 tablet by ORAL route every 12 hours for 10 days; 20 tablet. - Medication Reconciliation Form, Thank You Letter, Antibiotic Education, Prescription Opioid Use form. - Follow up: Claudia Lucas MD; When: 2 - 3 days; Reason: Recheck today's complaints, Continuance of care. - Problem is an ongoing problem. - Symptoms have improved. Signatures: Apollo Garcia MD MD rn Roszak, Josh, PA PA jr8 Ki Villalobos RN RN hj Corrections: (The following items were deleted from the chart) 13:28 13:12 ENT: External ear(s): are unremarkable, Ear canal(s): are normal, Nose: is jr8 normal, Mouth: is normal, Posterior pharynx: is normal, airway is patent, no erythema, no exudate, jr8 13:31 13:12 ENT: External ear(s): are unremarkable, Ear canal(s): are normal, TM's: erythema, jr8 that is mild, on the left, fluid levels, on the left, Nose: is normal, Mouth: is normal, Posterior pharynx: is normal, airway is patent, no erythema, no exudate, jr8 13:33 13:27 Data reviewed: vital signs, nurses notes, jr8 jr8 13:33 13:27 Data interpreted: Pulse oximetry: on room air is 99 %. Interpretation: normal. [id number] 13:52 13:35 09/20/2018 13:35 Discharged to Home. Impression: Acute serous otitis media, left hj ear. Condition is Stable. Forms are Medication Reconciliation Form, Thank You Letter, Antibiotic Education, Prescription Opioid Use. Follow up: Claudia Lucas; When: 2 - 3 days; Reason: Recheck today's complaints, Continuance of care. Problem is an ongoing problem. Symptoms have improved. jr8
[2018-09-20 15:27] VITALS: BP 119/77; TEMP 98; O2SAT 99
== END 2018-09-20 13:52 | disposition home or self-care (01) ==
LOC: ER 12:25
DX: H65.02 Acute serous otitis media, left ear (principal); J45.909 Unspecified asthma, uncomplicated; Z91.041 Radiographic dye allergy status; Z91.040 Latex allergy status

== ENCOUNTER 2018-11-03 09:32 | Emergency (ER) | payer SELFPAY ==
[2018-11-03] MEDS ORDERED: KETOROLAC 30 MG/ML INJ ONE (10:58)
[2018-11-03] MEDS ORDERED: ONDANSETRON 4 MG (ODT) TAB ONE (10:59)
--- NOTE | 2018-11-03 11:10 | RAD REPORT ---
EXAM DESCRIPTION: RAD - Chest Single View - 11/03/2018 11:03 am CLINICAL HISTORY: CONGESTION Chest pain. COMPARISON: No comparisons FINDINGS: Portable technique limits examination quality. The lungs are grossly clear. The heart is normal in size. No displaced fractures. IMPRESSION: No acute intrathoracic process suspected.
--- NOTE | 2018-11-03 12:14 | ER ---
Nurse's Notes [facility] Name: Kristin Atkinson Age: 32 yrs Sex: Female : 1985 Arrival Date: 11/03/2018 Time: 09:36 Bed 14 Private MD: Diagnosis: Acute pharyngitis;Acute pharyngitis, unspecified;Viral infection, unspecified;Headache;Acute upper respiratory infection, unspecified Presentation: 11/03 09:42 Presenting complaint: Patient states: Sore throat with pain radiating up into the ears sg and neck, reports headache that feels like a normal headache, reports having pain when swallowing, child in home recently diagnosed with strep throat, symptoms going on now for 3 days fever 102.5 last night. Transition of care: patient was not received from another setting of care. Onset of symptoms was November 03, 2018. Risk Assessment: Do you want to hurt yourself or someone else? Patient reports no desire to harm self or others. Initial Sepsis Screen: Does the patient meet any 2 criteria? No. Patient's initial sepsis screen is negative. Does the patient have a suspected source of infection? No. Patient's initial sepsis screen is negative. Care prior to arrival: None. 09:42 Method Of Arrival: Ambulatory sg 09:42 Acuity: BOOM 4 sg Historical: - Allergies: 09:41 Iodinated Contrast Media - IV Dye; sg 09:41 Latex, Natural Rubber; sg - PMHx: 09:41 Asthma; Ovarian cyst; ectopic ; sg - PSHx: 09:41 surgery for ectopic ; sg - Immunization history:: Adult Immunizations not up to date. - Social history:: Smoking status: Patient/guardian denies using tobacco. - Ebola Screening: : Patient negative for fever greater than or equal to 101.5 degrees Fahrenheit, and additional compatible Ebola Virus Disease symptoms Patient denies exposure to infectious person Patient denies travel to an Ebola-affected area in the 21 days before illness onset No symptoms or risks identified at this time. Screenin:25 Abuse screen: Denies threats or abuse. Denies injuries from another. Nutritional sg screening: No deficits noted. Tuberculosis screening: No symptoms or risk factors identified. Never had TB. Fall Risk None identified. Assessment: 10:25 General: Appears in no apparent distress. uncomfortable, well groomed, well developed, sg well nourished, Behavior is calm, cooperative, appropriate for age. Pain: Complains of pain in head Quality of pain is described as aching. 10:25 Neuro: Level of Consciousness is awake, alert, obeys commands, Oriented to person, sg place, time, Plant Specialist are equal bilaterally Moves all extremities. Full function Gait is steady, Speech is normal, Facial symmetry appears normal. Neuro: Reports headache frontal area. Cardiovascular: Capillary refill is brisk in bilateral fingers Patient's skin is warm and dry. Chest pain is denied. Respiratory: Airway is patent Respiratory effort is even, unlabored, Breath sounds are clear. GI: Abdomen is round non-distended, Reports nausea, tolerance of fluids, tolerance of food. : No signs and/or symptoms were reported regarding the genitourinary system. EENT: Oral mucosa is moist. Throat is reddened. EENT: Reports pain when swallowing. Derm: Skin is pink, warm \T\ dry. Musculoskeletal: Circulation, motion, and sensation intact. Range of motion: intact in all extremities. Vital Signs: 09:40 BP 134 / 82; Pulse 79; Resp 16; Pulse Ox 100% on R/A; Weight 51.26 kg (R); Height 5 ft. sg 2 in. (157.48 cm); Pain 8/10; 09:45 Temp 99.4(TE); sg 09:40 Body Mass Index 20.67 (51.26 kg, 157.48 cm) sg ED Course: 09:36 Patient arrived in ED. mr 09:36 Danish Garcia MD is Attending Physician. kdr 09:40 Josias Gómez, SHANNON is Primary Nurse. sg 09:42 Arm band placed on. sg 09:43 Triage completed. sg 10:25 Patient has correct armband on for positive identification. Bed in low position. Call sg light in reach. Side rails up X2. Pulse ox on. NIBP on. 11:11 Flu and/or RSV swab sent to lab. Strep swab sent to lab. sg Administered Medications: 11:02 Drug: Zofran 4 mg Route: PO; iw 12:00 Follow up: Response: No adverse reaction; Nausea is decreased sg 11:02 Drug: Ketorolac 15 mg Route: IM; Site: right ventrogluteal; iw 11:40 Follow up: Response: No adverse reaction; Pain is decreased leslye Outcome: 12:13 Discharge ordered by . lynn 12:20 Patient left the ED. eb Signatures: Josias Gómez RN RN sg Rittger, Kevin, MD MD kdr Rivera, Mary mr Williams, Irene, RN RN iw Botello, Elizabeth eb
--- NOTE | 2018-11-03 12:15 | EDPHYS ---
Physician Documentation [facility] Name: Kristin Atkinson Age: 32 yrs Sex: Female : 1985 Arrival Date: 11/03/2018 Time: 09:36 Bed 14 Private MD: ED Physician Danish Garcia HPI: 11/03 10:48 This 32 yrs old Female presents to ER via Ambulatory with complaints of Sore kdr Throat, Vomiting, Headache. 10:48 The patient presents with sore throat, dysphagia, of both solids and liquids. The kdr patient describes throat pain as burning, constant, intermittent, raw, suffocating. Onset: The symptoms/episode began/occurred gradually, 3 day(s) ago. Severity of symptoms: At their worst the symptoms were mild, moderate, just prior to arrival, in the emergency department the symptoms are unchanged. Modifying factors: The symptoms are alleviated by nothing, the symptoms are aggravated by fluids, foods, swallowing. Associated signs and symptoms: Pertinent positives:. The patient has not experienced similar symptoms in the past. The patient has not recently seen a physician. The patient states that she has had a HSU for the last three days and that she has also developed a sore throat and upper respiratory congestion. Historical: - Allergies: 09:41 Iodinated Contrast Media - IV Dye; sg 09:41 Latex, Natural Rubber; sg - PMHx: 09:41 Asthma; Ovarian cyst; ectopic ; sg - PSHx: 09:41 surgery for ectopic ; sg - Immunization history:: Adult Immunizations not up to date. - Social history:: Smoking status: Patient/guardian denies using tobacco. - Ebola Screening: : Patient negative for fever greater than or equal to 101.5 degrees Fahrenheit, and additional compatible Ebola Virus Disease symptoms Patient denies exposure to infectious person Patient denies travel to an Ebola-affected area in the 21 days before illness onset No symptoms or risks identified at this time. ROS: 10:48 Constitutional: Negative for fever, chills, and weight loss, Eyes: Negative for injury, kdr pain, redness, and discharge, Neck: Negative for injury, pain, and swelling, Cardiovascular: Negative for chest pain, palpitations, and edema, Respiratory: Negative for shortness of breath, cough, wheezing, and pleuritic chest pain, Back: Negative for injury and pain, : Negative for injury, bleeding, discharge, and swelling, MS/Extremity: Negative for injury and deformity, Skin: Negative for injury, rash, and discoloration, Psych: Negative for depression, anxiety, suicide ideation, homicidal ideation, and hallucinations, Allergy/Immunology: Negative for hives, rash, and allergies, Endocrine: Negative for neck swelling, polydipsia, polyuria, polyphagia, and marked weight changes, Hematologic/Lymphatic: Negative for swollen nodes, abnormal bleeding, and unusual bruising. 10:48 ENT: Positive for sore throat, Negative for drainage from ear(s), ear pain, foreign body sensation, Gum pain hearing loss, pulling at ears, Teeth pain tinnitus, rhinorrhea. Exam: 10:48 Constitutional: This is a well developed, well nourished patient who is awake, alert, kdr and in no acute distress. Head/Face: Normocephalic, atraumatic. Eyes: Pupils equal round and reactive to light, extra-ocular motions intact. Lids and lashes normal. Conjunctiva and sclera are non-icteric and not injected. Cornea within normal limits. Periorbital areas with no swelling, redness, or edema. Neck: Trachea midline, no thyromegaly or masses palpated, and no cervical lymphadenopathy. Supple, full range of motion without nuchal rigidity, or vertebral point tenderness. No Meningismus. Chest/axilla: Normal chest wall appearance and motion. Nontender with no deformity. No lesions are appreciated. Cardiovascular: Regular rate and rhythm with a normal S1 and S2. No gallops, murmurs, or rubs. Normal PMI, no JVD. No pulse deficits. Respiratory: Lungs have equal breath sounds bilaterally, clear to auscultation and percussion. No rales, rhonchi or wheezes noted. No increased work of breathing, no retractions or nasal flaring. Abdomen/GI: Soft, non-tender, with normal bowel sounds. No distension or tympany. No guarding or rebound. No evidence of tenderness throughout. Back: No spinal tenderness. No costovertebral tenderness. Full range of motion. Skin: Warm, dry with normal turgor. Normal color with no rashes, no lesions, and no evidence of cellulitis. MS/ Extremity: Pulses equal, no cyanosis. Neurovascular intact. Full, normal range of motion. Neuro: Awake and alert, GCS 15, oriented to person, place, time, and situation. Cranial nerves II-XII grossly intact. Motor strength 5/5 in all extremities. Sensory grossly intact. Cerebellar exam normal. Normal gait. Vital Signs: 09:40 BP 134 / 82; Pulse 79; Resp 16; Pulse Ox 100% on R/A; Weight 51.26 kg (R); Height 5 ft. sg 2 in. (157.48 cm); Pain 8/10; 09:45 Temp 99.4(TE); sg 09:40 Body Mass Index 20.67 (51.26 kg, 157.48 cm) sg MDM: 10:48 Data reviewed: vital signs, nurses notes, lab test result(s), radiologic studies. kdr Counseling: I had a detailed discussion with the patient and/or guardian regarding: the historical points, exam findings, and any diagnostic results supporting the discharge/admit diagnosis, lab results, radiology results, the need for outpatient follow up. 12:13 Patient medically screened. kdr 11/03 10:10 Order name: Flu 11/03 10:10 Order name: Strep 11/03 10:10 Order name: CXR XRAY 11/03 10:35 Order name: Group A Streptococcus Rapid Sc; Complete Time: 10:37 EDMS 11/03 10:46 Order name: Influenza Screen (A ; Complete Time: 11:24 EDMS Administered Medications: 11:02 Drug: Zofran 4 mg Route: PO; iw 12:00 Follow up: Response: No adverse reaction; Nausea is decreased sg 11:02 Drug: Ketorolac 15 mg Route: IM; Site: right ventrogluteal; iw 11:40 Follow up: Response: No adverse reaction; Pain is decreased sg Disposition: 11/03/18 12:13 Discharged to Home. Impression: Acute pharyngitis, Acute pharyngitis, unspecified, Viral infection, unspecified, Headache, Acute upper respiratory infection, unspecified. - Condition is Stable. - Discharge Instructions: Pharyngitis, Plol-yf-Urcr, Viral Respiratory Infection, Ngit-Xm-Thyt, General Headache Without Cause, Yakn-kw-[id number], Sore Throat, Mxmh-tm-Fzel, Nausea, Adult, Tadf-mv-Zdaq. - Prescriptions for Zofran 4 mg Oral Tablet - take 1 tablet by ORAL route every 4-6 hours As needed; 15 tablet. - Medication Reconciliation Form, Thank You Letter, Work release form form. - Follow up: Private Physician; When: 2 - 3 days; Reason: If symptoms return, Further diagnostic work-up, Recheck today's complaints, Continuance of care, Re-evaluation by your physician. - Problem is new. - Symptoms have improved. Signatures: Dispatcher [employer] EDMS Josias Gómez RN RN sg Dnaish Garcia MD MD [facility] Shawnee Greer RN RN Elpidio Eddy MD MD gs Botello, Elizabeth eb Corrections: (The following items were deleted from the chart) 12:20 12:13 11/03/2018 12:13 Discharged to Home. Impression: Acute pharyngitis; Acute eb pharyngitis, unspecified; Viral infection, unspecified; Headache; Acute upper respiratory infection, unspecified. Condition is Stable. Forms are Medication Reconciliation Form, Thank You Letter, Antibiotic Education, Prescription Opioid Use. Follow up: Private Physician; When: 2 - 3 days; Reason: If symptoms return, Further diagnostic work-up, Recheck today's complaints, Continuance of care, Re-evaluation by your physician. Problem is new. Symptoms have improved. kdr
[2018-11-03 12:31] VITALS: BP 134/82; O2SAT 100
[2018-11-03 12:33] VITALS: TEMP 99.4
== END 2018-11-03 12:20 | disposition home or self-care (01) ==
LOC: ER 09:32
DX: J06.9 Acute upper respiratory infection, unspecified (principal); B34.9 Viral infection, unspecified; R51 Headache; Z91.09 Other allergy status, other than to drugs and biological substances; Z91.040 Latex allergy status
CPT/HCPCS: 71045; 87070; 87081; 87804; 96372; 99283

== ENCOUNTER 2018-12-05 09:55 | Emergency (ER) | payer SELFPAY ==
[2018-12-05] MEDS ORDERED: ALBUTEROL 2.5 MG/3 ML NEB SOL ONE (10:27)
[2018-12-05] MEDS ORDERED: predniSONE 20 MG TAB ONE (10:28)
[2018-12-05 10:55] LABS: Urine Blood 2+ (NEG); Urine Glucose NEGATIVE (NEG); Urine Protein 2+ (NEG); Urine Specific Gravity 1.025 (1.005-1.030)
--- NOTE | 2018-12-05 11:32 | RAD REPORT ---
EXAM DESCRIPTION: Russ Single View12/05/2018 11:25 am CLINICAL HISTORY: Cough COMPARISON: October 2018 FINDINGS: Lungs are hyperaerated The lungs appear clear of acute infiltrate. The heart is normal size IMPRESSION: No acute abnormalities displayed
--- NOTE | 2018-12-05 11:33 | EDPHYS ---
Physician Documentation [facility] Name: Kristin Atkinson Age: 33 yrs Sex: Female : 1985 Arrival Date: 12/05/2018 Time: 09:56 Bed 20 Private MD: ED Physician Apollo Garcia HPI: 12/05 12:35 This 33 yrs old Female presents to ER via Ambulatory with complaints of jr8 Asthma Exacerbation, Chest Tightness. 12:35 The patient presents to the emergency department with wheezing, Current therapy: jr8 albuterol inhaler, albuterol nebs, that began without any particular precipitating event. Onset: The symptoms/episode began/occurred yesterday. Associated signs and symptoms: Pertinent negatives: chest pain, headache, nausea, palpitations, rash, vomiting. Severity of symptoms: At their worst the symptoms were mild. Pt reports wheezing, cough that is non-productive. States she feels a little SOB. Takes zyrtec daily for allergy control but has not had her albuterol nebs at home. Has had to use her inhaler a few times in the last couple days which she has not had to do for the last few months. ROVING HAND: 10:02 LMP 11/14/2018 aj1 Historical: - Allergies: 10:02 Iodinated Contrast Media - IV Dye; aj1 10:02 Latex, Natural Rubber; aj1 - Home Meds: 10:02 Albuterol Nebulizer [Active]; Zyrtec Oral [Active]; aj1 - PMHx: 10:02 Asthma; ectopic ; Ovarian cyst; aj1 - Immunization history:: Flu vaccine is not up to date. - Social history:: Smoking status: Patient/guardian denies using tobacco. - Ebola Screening: : Patient denies travel to an Ebola-affected area in the 21 days before illness onset. ROS: 12:35 Constitutional: Negative for fever, chills, and weight loss, Eyes: Negative for injury, jr8 pain, redness, and discharge, ENT: Negative for injury, pain, and discharge, Neck: Negative for injury, pain, and swelling, Cardiovascular: Negative for chest pain, palpitations, and edema, Respiratory: Negative for shortness of breath, cough, wheezing, and pleuritic chest pain, Abdomen/GI: Negative for abdominal pain, nausea, vomiting, diarrhea, and constipation, Back: Negative for injury and pain, MS/Extremity: Negative for injury and deformity, Neuro: Negative for headache, weakness, numbness, tingling, and seizure. Exam: 12:35 Constitutional: This is a well developed, well nourished patient who is awake, alert, jr8 and in no acute distress. Head/Face: Normocephalic, atraumatic. Eyes: Pupils equal round and reactive to light, extra-ocular motions intact. Lids and lashes normal. Conjunctiva and sclera are non-icteric and not injected. Cornea within normal limits. Periorbital areas with no swelling, redness, or edema. ENT: Nares patent. No nasal discharge, no septal abnormalities noted. Tympanic membranes are normal and external auditory canals are clear. Oropharynx with no redness, swelling, or masses, exudates, or evidence of obstruction, uvula midline. Mucous membranes moist. Neck: Trachea midline, no thyromegaly or masses palpated, and no cervical lymphadenopathy. Supple, full range of motion without nuchal rigidity, or vertebral point tenderness. No Meningismus. Chest/axilla: Normal chest wall appearance and motion. Nontender with no deformity. No lesions are appreciated. Cardiovascular: Regular rate and rhythm with a normal S1 and S2. No gallops, murmurs, or rubs. Normal PMI, no JVD. No pulse deficits. Abdomen/GI: Soft, non-tender, with normal bowel sounds. No distension or tympany. No guarding or rebound. No evidence of tenderness throughout. Back: No spinal tenderness. No costovertebral tenderness. Full range of motion. MS/ Extremity: Pulses equal, no cyanosis. Neurovascular intact. Full, normal range of motion. 12:35 Respiratory: the patient does not display signs of respiratory distress, Respirations: normal, Breath sounds: wheezing: expiratory that is mild, is heard diffusely. Vital Signs: 10:02 BP 116 / 89; Pulse 92; Resp 18; Temp 97.9; Pulse Ox 98% on R/A; Weight 48.08 kg (R); aj1 Height 5 ft. 3 in. (160.02 cm) (R); Pain 9/10; 10:42 BP 103 / 73; Pulse 78; Resp 20; Pulse Ox 100% ; bp 11:25 BP 102 / 67; Pulse 89; Resp 20; Pulse Ox 100% ; bp 10:02 Body Mass Index 18.78 (48.08 kg, 160.02 cm) aj1 MDM: 10:02 Patient medically screened. jr8 11:31 Data reviewed: vital signs, nurses notes, radiologic studies, plain films. Data jr8 interpreted: Pulse oximetry: on room air is 100 %. Interpretation: normal. Counseling: I had a detailed discussion with the patient and/or guardian regarding: the historical points, exam findings, and any diagnostic results supporting the discharge/admit diagnosis, radiology results, the need for outpatient follow up, a family practitioner, to return to the emergency department if symptoms worsen or persist or if there are any questions or concerns that arise at home. Response to treatment: the patient's symptoms have mildly improved after treatment. 12:37 ED course: Pt symptoms improved significantly with nebs, given steroids in ED, strict jr8 return precautions given. . 12/05 10:43 Order name: Urine Dipstick--Ancillary (enter results); Complete Time: 11:00 gm 12/05 10:21 Order name: XRAY Chest (1 view); Complete Time: 11:37 jr8 12/05 10:24 Order name: Urine Test (obtain specimen); Complete Time: 10:32 jr8 12/05 10:24 Order name: Urine Dipstick-Ancillary (obtain specimen); Complete Time: 10:32 jr8 Administered Medications: 10:30 Drug: Albuterol 2.5 mg Route: Inhalation; bp 10:30 Drug: predniSONE 60 mg Route: PO; bp 11:24 Follow up: Response: No adverse reaction bp 10:50 Drug: Albuterol 2.5 mg Route: Inhalation; bp 11:10 Drug: Albuterol 2.5 mg Route: Inhalation; bp Disposition: 14:40 Co-signature as Attending Physician, Apollo Garcia MD. rn Disposition: 12/05/18 11:32 Discharged to Home. Impression: Mild intermittent asthma with (acute) exacerbation. - Condition is Stable. - Discharge Instructions: Asthma, Adult. - Prescriptions for Prednisone 20 mg Oral Tablet - take 1 tablet by ORAL route once daily for 4 days; 4 tablet. Albuterol Sulfate 2.5 mg /3 mL (0.083 %) Inhalation Solution for Nebulization - inhale 1 unit by NEBULIZATION route every 8 hours As needed; 1 box. Albuterol Sulfate 90 mcg/actuation - inhale 1-2 puff by INHALATION route every 4-6 hours; 1 Inhaler. - Medication Reconciliation Form, Thank You Letter, Antibiotic Education, Prescription Opioid Use form. - Follow up: Private Physician; When: 2 - 3 days; Reason: Recheck today's complaints, Continuance of care, Re-evaluation by your physician. - Problem is new. - Symptoms have improved. Signatures: Dispatcher [employer] EDChristine Uribe RN RN aj1 Apollo Garcia MD MD rn Roszak, Josh, PA PA jr8 Wilmer Oswald RN RN bp Corrections: (The following items were deleted from the chart) 11:41 11:32 12/05/2018 11:32 Discharged to Home. Impression: Mild intermittent asthma with bp (acute) exacerbation. Condition is Stable. Forms are Medication Reconciliation Form, Thank You Letter, Antibiotic Education, Prescription Opioid Use. Follow up: Private Physician; When: 2 - 3 days; Reason: Recheck today's complaints, Continuance of care, Re-evaluation by your physician. Problem is new. Symptoms have improved. jr8
--- NOTE | 2018-12-05 11:33 | ER ---
Nurse's Notes [facility] Name: Kristin Atkinson Age: 33 yrs Sex: Female : 1985 Arrival Date: 12/05/2018 Time: 09:56 Bed 20 Private MD: Diagnosis: Mild intermittent asthma with (acute) exacerbation Presentation: 12/05 09:59 Presenting complaint: Patient states: Fever, sinus congestion, dry cough, shortness of aj1 breath for the past 4 days. Reports history of asthma, states that she has been doing her breathing treatments but they aren't helping her shortness of breath. Transition of care: patient was not received from another setting of care. Onset of symptoms was November 30, 2018. Risk Assessment: Do you want to hurt yourself or someone else? Patient reports no desire to harm self or others. Initial Sepsis Screen: Does the patient meet any 2 criteria? HR > 90 bpm. No. Patient's initial sepsis screen is negative. Does the patient have a suspected source of infection? No. Patient's initial sepsis screen is negative. Care prior to arrival: None. 09:59 Method Of Arrival: Ambulatory aj1 09:59 Acuity: BOOM 4 aj1 Triage Assessment: 10:02 General: Appears in no apparent distress. uncomfortable, Behavior is calm, cooperative, aj1 appropriate for age. Pain: Complains of pain in chest Pain currently is 9 out of 10 on a pain scale. EENT: Reports nasal congestion nasal discharge. Neuro: Level of Consciousness is awake, alert, obeys commands. Cardiovascular: Patient's skin is warm and dry. Respiratory: Airway is patent Respiratory effort is even, unlabored, Respiratory pattern is regular, symmetrical. MATERIAL LIAISON: 10:02 LMP 11/14/2018 aj1 Historical: - Allergies: 10:02 Iodinated Contrast Media - IV Dye; aj1 10:02 Latex, Natural Rubber; aj1 - Home Meds: 10:02 Albuterol Nebulizer [Active]; Zyrtec Oral [Active]; aj1 - PMHx: 10:02 Asthma; ectopic ; Ovarian cyst; aj1 - Immunization history:: Flu vaccine is not up to date. - Social history:: Smoking status: Patient/guardian denies using tobacco. - Ebola Screening: : Patient denies travel to an Ebola-affected area in the 21 days before illness onset. Screenin:19 Abuse screen: Denies threats or abuse. Denies injuries from another. Nutritional bp screening: No deficits noted. Tuberculosis screening: No symptoms or risk factors identified. Fall Risk None identified. Assessment: 10:05 General: SEE TRIAGE NOTE. bp 11:25 Reassessment: ALL CURRENT ORDERS COMPLETED. Reassessment: Patient states feeling better.bp 11:40 Reassessment: PT D/C HOME AMBULATORY, DX WITH ASTHMA EXACERBATION. bp Vital Signs: 10:02 BP 116 / 89; Pulse 92; Resp 18; Temp 97.9; Pulse Ox 98% on R/A; Weight 48.08 kg (R); aj1 Height 5 ft. 3 in. (160.02 cm) (R); Pain 9/10; 10:42 BP 103 / 73; Pulse 78; Resp 20; Pulse Ox 100% ; bp 11:25 BP 102 / 67; Pulse 89; Resp 20; Pulse Ox 100% ; bp 10:02 Body Mass Index 18.78 (48.08 kg, 160.02 cm) aj1 ED Course: 09:56 Patient arrived in ED. as 10:01 Triage completed. aj1 10:02 Mike Toth PA is PHCP. jr8 10:02 Apollo Garcia MD is Attending Physician. jr8 10:02 Arm band placed on Patient placed in an exam room. aj1 10:17 Wilmer Oswald, SHANNON is Primary Nurse. bp 10:19 Patient has correct armband on for positive identification. Bed in low position. Call bp light in reach. Side rails up X2. Pulse ox on. NIBP on. 10:34 Urine collected: clean catch specimen, cloudy, paulette colored. jb1 11:27 XRAY Chest (1 view) In Process Unspecified. EDMS 11:40 No provider procedures requiring assistance completed. Patient did not have IV access bp during this emergency room visit. Patient maintains SpO2 saturation greater than 95% on room air. Administered Medications: 10:30 Drug: Albuterol 2.5 mg Route: Inhalation; bp 10:30 Drug: predniSONE 60 mg Route: PO; bp 11:24 Follow up: Response: No adverse reaction bp 10:50 Drug: Albuterol 2.5 mg Route: Inhalation; bp 11:10 Drug: Albuterol 2.5 mg Route: Inhalation; bp Outcome: 11:32 Discharge ordered by MD. lutz 11:40 Discharged to home ambulatory. bp 11:40 Condition: stable 11:40 Discharge instructions given to patient, Instructed on discharge instructions, follow up and referral plans. medication usage, Demonstrated understanding of instructions, follow-up care, medications, Prescriptions given X 3. 11:41 Patient left the ED. bp Signatures: Dispatcher [employer] EDMS Tulio Sylvester jb1 Christine Montano, RN RN aj1 Roxie Morales Josh, PA PA 8 Wilmer Oswald, RN RN bp
[2018-12-05 12:14] VITALS: O2SAT 100
[2018-12-05 12:15] VITALS: BP 102/67
[2018-12-05 23:35] VITALS: TEMP 97.9
== END 2018-12-05 11:41 | disposition home or self-care (01) ==
LOC: ER 09:55
DX: J45.21 Mild intermittent asthma with (acute) exacerbation (principal); Z91.040 Latex allergy status; Z91.041 Radiographic dye allergy status; Z91.048 Other nonmedicinal substance allergy status
CPT/HCPCS: 71045; 81003; 99285; J7512

== ENCOUNTER 2019-04-12 11:20 | Emergency (ER) | payer SELFPAY ==
[2019-04-12 12:12] LABS: Urine Blood TRACE (NEG); Urine Glucose NEGATIVE (NEG); Urine Protein NEGATIVE (NEG); Urine pH 6.5 (5.0-7.0)
[2019-04-12] MEDS ORDERED: PROMETHAZINE 25 MG TABLET ONE (12:25)
[2019-04-12 12:44] LABS: Urine Bacteria <20 /HPF (<20); Urine Culture Reflex Order NOT NEEDED; Urine RBC <5 /HPF (NONE SEEN)
--- NOTE | 2019-04-12 12:46 | RAD REPORT ---
EXAM DESCRIPTION: CT - Stone Protocol - 04/12/2019 12:24 pm CLINICAL HISTORY: PAIN COMPARISON: Stone Protocol dated 06/21/2017 TECHNIQUE: Axial 5 mm thick images were obtained without oral or IV contrast. The [id number] span s the entirety of the system including uppermost abdomen and lung bases. All CT scans are performed using dose optimization technique as appropriate and may include automated exposure control or mA/KV adjustment according to patient size. FINDINGS: No hydronephrosis is present and no obstructing ureteral calculi. No suspicious renal mass es. Isodense masses and pyelonephritis are not excluded on a stone protocol CT scan. Patient has mode rately prominent bilateral nephrocalcinosis pattern similar to the 2018 study. No calculi seen within the collecting system. No significant adrenal finding. Urinary bladder is nearly fully contracted limiting assessment. No accurate evaluation for cystitis c an be performed. Patient has a prominent uterus similar to comparison. Primary ovarian process is not suspected. Detai l is limited. Imaged portions of the liver, spleen and pancreas show no suspicious findings on non-contrast imaging . No gallbladder or biliary tree abnormality identified. No suspicious bowel findings. Appendix is not well visualized. No direct or indirect evidence for nieves endicitis. A few small mesenteric lymph nodes are present. No hernia, mass or bulky lymphadenopathy noted. No free air or pneumatosis. Physiologic quantity of f ree fluid seen in the cul de sac. No significant bony abnormality. IMPRESSION: Negative CT stone protocol study for acute or significant finding. Contracted urinary bl adder is limited in assessment. Bilateral nephrocalcinosis pattern matches the 2018 study. Exam is limited in the absence of oral and IV contrast. Isodense masses and pyelonephritis are not excluded on stone protocol technique.
--- NOTE | 2019-04-12 15:04 | ER ---
Nurse's Notes [facility] Name: Kristin Atkinson Age: 33 yrs Sex: Female : 1985 Arrival Date: 04/12/2019 Time: 11:22 Bed 26 Private MD: Diagnosis: Nonspecific mesenteric lymphadenitis; Nephrocalcinosis similar to 2018 Presentation: 04/12 11:31 Presenting complaint: Patient states: i have been having a lot of pain on my right tw2 side, since Tuesday night and its gotten worse, and i started feeling nauseous with it, i am also having burning with urination and frequency so i started taking cranberry pills. Transition of care: patient was not received from another setting of care. Onset of symptoms was April 12, 2019. Risk Assessment: Do you want to hurt yourself or someone else? Patient reports no desire to harm self or others. Initial Sepsis Screen: Does the patient meet any 2 criteria? No. Patient's initial sepsis screen is negative. Does the patient have a suspected source of infection? No. Patient's initial sepsis screen is negative. Care prior to arrival: None. 11:31 Method Of Arrival: Ambulatory tw2 11:31 Acuity: BOOM 3 tw2 Triage Assessment: 11:32 General: Appears in no apparent distress. uncomfortable, slender, well groomed, tw2 Behavior is calm, cooperative, appropriate for age. Pain: Complains of pain in right lower quadrant. GI: Reports lower abdominal pain, nausea. 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 - Coronavirus screen:: The patient has NOT traveled to [place], [place], or [place] in the past 14 days. - Social history:: Smoking status: . - Ebola Screening: : Patient denies travel to an Ebola-affected area in the 21 days before illness onset. Screenin:57 Abuse screen: Denies threats or abuse. Nutritional screening: No deficits noted. tw2 Tuberculosis screening: No symptoms or risk factors identified. Fall Risk None identified. Assessment: 12:11 General: Appears in no apparent distress. comfortable, Behavior is calm, cooperative. mg2 Pain: Complains of pain in abdomen and right lower quadrant. Neuro: Level of Consciousness is awake, alert, obeys commands, Oriented to person, place, time, situation. Cardiovascular: Capillary refill < 3 seconds Patient's skin is warm and dry. Respiratory: Airway is patent Respiratory effort is even, unlabored, Respiratory pattern is regular, symmetrical. GI: Bowel sounds present X 4 quads. Abd is soft Reports lower abdominal pain, nausea. : Reports burning with urination. EENT: No signs and/or symptoms were reported regarding the EENT system. Derm: Skin is intact, is healthy with good turgor, Skin is pink, warm \T\ dry. normal. Musculoskeletal: Circulation, motion, and sensation intact. Capillary refill < 3 seconds. 14:57 Reassessment: Patient appears in no apparent distress at this time. Patient and/or mg2 family updated on plan of care and expected duration. Pain level reassessed. Patient is alert, oriented x 3, equal unlabored respirations, skin warm/dry/pink. Vital Signs: 11:33 BP 123 / 69; Pulse 100; Resp 17; Temp 97.8(TE); Pulse Ox 100% on R/A; Weight 48.99 kg tw2 (R); Height 5 ft. 3 in. (160.02 cm); Pain 8/10; 13:48 BP 99 / 66; Pulse 80; Resp 14; Temp 98.7(O); Pulse Ox 100% on R/A; Pain 8/10; mg2 14:55 BP 112 / 71; Pulse 70; Resp 17; Temp 98.8(O); Pulse Ox 100% on R/A; mh5 11:33 Body Mass Index 19.13 (48.99 kg, 160.02 cm) tw2 13:48 RLQ, sharp, intermintent, nausea improved mg2 ED Course: 11:22 Patient arrived in ED. mr 11:32 Triage completed. tw2 11:32 Arm band placed on. tw2 11:43 Bisi Acosta FNP-C [facility]. snw 11:43 Apollo Garcia MD is Attending Physician. snw 11:57 Bed in low position. Call light in reach. Side rails up X 1. Adult w/ patient. tw2 12:06 Zach Bui, RN is Primary Nurse. mg2 12:13 No provider procedures requiring assistance completed. Patient did not have IV access mg2 during this emergency room visit. 12:13 Urine Microscopic Only Sent. jp3 12:13 Urine Culture Sent. jp3 12:14 Urine Dipstick--Ancillary (enter results) Sent. jp3 12:14 Urine --Ancillary (enter results) Sent. jp3 Administered Medications: 12:38 Drug: Phenergan 25 mg Route: PO; mg2 13:48 Follow up: Response: Nausea is decreased mg2 15:33 Drug: TORadol 30 mg Route: IM; Site: left gluteus; mg2 15:35 Follow up: Response: No adverse reaction; Medication administered at discharge. mg2 15:33 Drug: [place] 5 mg-325 mg 1 tabs Route: PO; mg2 15:35 Follow up: Response: No adverse reaction; Medication administered at discharge. mg2 Outcome: 15:03 Discharge ordered by MD. snw 15:34 Patient left the ED. mg2 15:34 Discharged to home ambulatory. mg2 15:34 Condition: stable 15:34 Discharge instructions given to patient, Instructed on discharge instructions, follow mg2 up and referral plans. Demonstrated understanding of instructions, follow-up care, Prescriptions given X 2. Signatures: Bisi Acosta, SHOW HOST OR HOSTESS-C SHOW HOST OR HOSTESS-Csnw Jessica Moncada Cierra Velasco, SHANNON RN tw2 Sonia Morales [facility] Zach Bui, SHANNON RN mg2 Addi Treviño jp3
--- NOTE | 2019-04-12 15:04 | EDPHYS ---
Physician Documentation [facility] Name: Kristin Atkinson Age: 33 yrs Sex: Female : 1985 Arrival Date: 04/12/2019 Time: 11:22 Bed 26 Private MD: ED Physician Apollo Garcia HPI: 04/12 12:10 This 33 yrs old Female presents to ER via Ambulatory with complaints of snw Abdominal Pain. 12:10 The patient presents with abdominal pain right lower quadrant. Onset: The snw symptoms/episode began/occurred gradually, and became worse and became persistent. The symptoms do not radiate. Associated signs and symptoms: Pertinent positives: nausea, vomiting, and diarrhea, 2 weeks ago, seen for bronchitis type s/s, flu and strep negative, then rlq pain became consistent and worsened. The symptoms are described as constant. Severity of pain: At its worst the pain was moderate in the emergency department the pain is unchanged. The patient has not experienced similar symptoms in the past. The patient has been recently seen by a physician:. 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 - Coronavirus screen:: The patient has NOT traveled to [place], [place], or [place] in the past 14 days. - Social history:: Smoking status: . - Ebola Screening: : Patient denies travel to an Ebola-affected area in the 21 days before illness onset. ROS: 12:10 Constitutional: Negative for fever, chills, and weight loss, Eyes: Negative for injury, snw pain, redness, and discharge, ENT: Negative for injury, pain, and discharge, Neck: Negative for injury, pain, and swelling, Cardiovascular: Negative for chest pain, palpitations, and edema, Respiratory: Negative for shortness of breath, cough, wheezing, and pleuritic chest pain, Back: Negative for injury and pain, : Negative for injury, bleeding, discharge, and swelling, MS/Extremity: Negative for injury and deformity, Skin: Negative for injury, rash, and discoloration, Neuro: Negative for headache, weakness, numbness, tingling, and seizure. 12:10 Abdomen/GI: Positive for abdominal pain, nausea, of the right lower quadrant. Exam: 12:09 Constitutional: This is a well developed, well nourished patient who is awake, alert, snw and in no acute distress. Head/Face: Normocephalic, atraumatic. Eyes: Pupils equal round and reactive to light, extra-ocular motions intact. Lids and lashes normal. Conjunctiva and sclera are non-icteric and not injected. Cornea within normal limits. Periorbital areas with no swelling, redness, or edema. ENT: Nares patent. No nasal discharge, no septal abnormalities noted. Tympanic membranes are normal and external auditory canals are clear. Oropharynx with no redness, swelling, or masses, exudates, or evidence of obstruction, uvula midline. Mucous membranes moist. Neck: Trachea midline, no thyromegaly or masses palpated, and no cervical lymphadenopathy. Supple, full range of motion without nuchal rigidity, or vertebral point tenderness. No Meningismus. Chest/axilla: Normal chest wall appearance and motion. Nontender with no deformity. No lesions are appreciated. Cardiovascular: Regular rate and rhythm with a normal S1 and S2. No gallops, murmurs, or rubs. Normal PMI, no JVD. No pulse deficits. Respiratory: Lungs have equal breath sounds bilaterally, clear to auscultation and percussion. No rales, rhonchi or wheezes noted. No increased work of breathing, no retractions or nasal flaring. Back: No spinal tenderness. No costovertebral tenderness. Full range of motion. Skin: Warm, dry with normal turgor. Normal color with no rashes, no lesions, and no evidence of cellulitis. MS/ Extremity: Pulses equal, no cyanosis. Neurovascular intact. Full, normal range of motion. Neuro: Awake and alert, GCS 15, oriented to person, place, time, and situation. Cranial nerves II-XII grossly intact. Motor strength 5/5 in all extremities. Sensory grossly intact. Cerebellar exam normal. Normal gait. Psych: Awake, alert, with orientation to person, place and time. Behavior, mood, and affect are within normal limits. 12:09 Abdomen/GI: Inspection: abdomen appears normal, Bowel sounds: normal, Palpation: moderate abdominal tenderness, in the right lower quadrant, Indicators: McBurney's point is tender. Vital Signs: 11:33 BP 123 / 69; Pulse 100; Resp 17; Temp 97.8(TE); Pulse Ox 100% on R/A; Weight 48.99 kg tw2 (R); Height 5 ft. 3 in. (160.02 cm); Pain 8/10; 13:48 BP 99 / 66; Pulse 80; Resp 14; Temp 98.7(O); Pulse Ox 100% on R/A; Pain 8/10; mg2 14:55 BP 112 / 71; Pulse 70; Resp 17; Temp 98.8(O); Pulse Ox 100% on R/A; mh5 11:33 Body Mass Index 19.13 (48.99 kg, 160.02 cm) tw2 13:48 RLQ, sharp, intermintent, nausea improved mg2 MDM: 12:00 Patient medically screened. snw 15:03 Data reviewed: vital signs, nurses notes. Data interpreted: Pulse oximetry: on room air snw is 100 %. Interpretation: normal. Counseling: I had a detailed discussion with the patient and/or guardian regarding: the historical points, exam findings, and any diagnostic results supporting the discharge/admit diagnosis, lab results, radiology results, the need for outpatient follow up, to return to the emergency department if symptoms worsen or persist or if there are any questions or concerns that arise at home. Special discussion: Based on the patient's Hx, exam, and Dx evaluation, there is no indication for emergent surgery or inpatient Tx. It is understood by the patient/guardian that if the Sx's persist or worsen they need to return immediately for re-evaluation. Based on the history and exam findings, there is no indication for further emergent testing or inpatient evaluation. I discussed with the patient/guardian the need to see the primary care provider for further evaluation of the symptoms. 04/12 11:42 Order name: Urine Culture formerly [facility] 04/12 11:42 Order name: Urine Microscopic Only formerly [facility] 04/12 11:58 Order name: Urine Dipstick--Ancillary (enter results) em1 04/12 11:58 Order name: Urine --Ancillary (enter results) 1 04/12 12:18 Order name: Urine --Ancillary; Complete Time: 12:18 EDMS 04/12 12:18 Order name: Urine Dipstick-Ancillary; Complete Time: 12:18 EDMS 04/12 11:42 Order name: Urine Test (obtain specimen); Complete Time: 11:55 snw 04/12 11:42 Order name: Urine Dipstick-Ancillary (obtain specimen); Complete Time: 11:56 snw 04/12 12:09 Order name: CT Stone Protocol formerly [facility] 04/12 12:49 Order name: Urine Microscopic Only; Complete Time: 12:50 EDMS Administered Medications: 12:38 Drug: Phenergan 25 mg Route: PO; mg2 13:48 Follow up: Response: Nausea is decreased mg2 15:33 Drug: TORadol 30 mg Route: IM; Site: left gluteus; mg2 15:35 Follow up: Response: No adverse reaction; Medication administered at discharge. mg2 15:33 Drug: [place] 5 mg-325 mg 1 tabs Route: PO; mg2 15:35 Follow up: Response: No adverse reaction; Medication administered at discharge. mg2 Disposition: 16:32 Co-signature as Attending Physician, Apollo Garcia MD. rn Disposition: 04/12/19 15:03 Discharged to Home. Impression: Nonspecific mesenteric lymphadenitis, Nephrocalcinosis similar to 2018. - Condition is Stable. - Discharge Instructions: Mesenteric Adenitis, Pediatric. - Prescriptions for Diclofenac Sodium 75 mg Oral Tablet Sustained Release - take 1 tablet by ORAL route 2 times per day; 30 tablet. - Medication Reconciliation Form, Thank You Letter, Antibiotic Education, Prescription Opioid Use form. - Follow up: Emergency Department; When: As needed; Reason: Worsening of condition. Follow up: Private Physician; When: 2 - 3 days; Reason: Recheck today's complaints, Continuance of care, Re-evaluation by your physician. Signatures: Dispatcher [employer] [facility] Bisi Acosta, COMPUTER REPAIR INSTRUCTOR-C COMPUTER REPAIR INSTRUCTOR-Csnw Apollo Garcia MD MD rn Wise, Tara, RN RN tw2 Zach Bui RN RN mg2 Corrections: (The following items were deleted from the chart) 15:34 15:03 04/12/2019 15:03 Discharged to Home. Impression: Nonspecific mesenteric mg2 lymphadenitis; Nephrocalcinosis similar to 2018. Condition is Stable. Forms are Medication Reconciliation Form, Thank You Letter, Antibiotic Education, Prescription Opioid Use. Follow up: Emergency Department; When: As needed; Reason: Worsening of condition. Follow up: Private Physician; When: 2 - 3 days; Reason: Recheck today's complaints, Continuance of care, Re-evaluation by your physician. alayna
[2019-04-12] MEDS ORDERED: KETOROLAC 30 MG/ML INJ ONE (15:20)
[2019-04-12] MEDS ORDERED: HYDROCODONE/APAP 5/325 MG TAB ONE (15:20)
[2019-04-12 15:55] VITALS: O2SAT 100
[2019-04-12 15:59] VITALS: BP 112/71; TEMP 98.8
== END 2019-04-12 15:34 | disposition home or self-care (01) ==
LOC: ER 11:20
DX: I88.0 Nonspecific mesenteric lymphadenitis (principal); E83.59 Other disorders of calcium metabolism; N29 Other disorders of kidney and ureter in diseases classified elsewhere; Z91.09 Other allergy status, other than to drugs and biological substances; Z91.040 Latex allergy status; J45.909 Unspecified asthma, uncomplicated
CPT/HCPCS: 74176; 76377; 81003; 81015; 81025; 87086; 87088; 96372; 99283; Q0169